=== PATIENT | female | born 1975 | race Hispanic/Latino ===

== ENCOUNTER 2019-01-15 14:49 | Inpatient (IN) | payer MEDICAID | END 2019-01-25 11:24 | disposition home or self-care (01) | DRG 430 | LOC: C.5E 01-16 00:23 → C.ER 14:49 | PROC: GZ56ZZZ Individual Psychotherapy, Supportive (ICD-10-PCS; principal; 2019-01-16) | DX: F33.2 Major depressive disorder, recurrent severe without psychotic features (principal); F10.230 Alcohol dependence with withdrawal, uncomplicated; N39.0 Urinary tract infection, site not specified; F10.220 Alcohol dependence with intoxication, uncomplicated; Y90.8 Blood alcohol level of 240 mg/100 ml or more; F17.210 Nicotine dependence, cigarettes, uncomplicated; F31.4 Bipolar disorder, current episode depressed, severe, without psychotic features; F43.12 Post-traumatic stress disorder, chronic; G47.00 Insomnia, unspecified ==